=== PATIENT | female | born 1965 | race Caucasian/White ===

== ENCOUNTER 2017-08-10 07:04 | Day surgery (SDC) | payer OTHER ==
[2017-08-10] MEDS ORDERED: MIDAZOLAM 1 MG/ML 2 ML INJ ×2 (09:38)
[2017-08-10] MEDS ORDERED: FENTAnyl 50 MCG/ML VIAL (09:38)
== END 2017-08-10 11:22 | disposition home or self-care (01) ==
LOC: GIL 07:04
DX: Z12.11 Encounter for screening for malignant neoplasm of colon (principal); D12.3 Benign neoplasm of transverse colon; K62.1 Rectal polyp; K64.8 Other hemorrhoids
CPT/HCPCS: 45380; 88305